=== PATIENT | male | born 1975 | race Caucasian/White ===

== ENCOUNTER 2018-04-22 16:25 | Emergency (ER) | payer SELFPAY ==
[~2018-04-22] VITALS: Ht 175.3 cm; Wt 72.7 kg
[2018-04-22 16:27] VITALS: Ht 175.3 cm; Wt 72.7 kg
[2018-04-22] MEDS ORDERED: NAPROSYN500 MG PO (17:55)
[2018-04-22 18:45] VITALS: BP 135/82
== END 2018-04-22 18:45 | disposition home or self-care (01) ==
LOC: D.ER 16:25
DX: S53.402A Unspecified sprain of left elbow, initial encounter (principal); X58.XXXA Exposure to other specified factors, initial encounter; Y93.89 Activity, other specified; Y92.019 Unspecified place in single-family (private) house as the place of occurrence of the external cause

== ENCOUNTER 2019-01-22 15:15 | Emergency (ER) | payer BC ==
[~2019-01-22] VITALS: Ht 175.3 cm; Wt 72.6 kg
[~2019-01-22 15:15] MED LIST: NAPROSYN500 MG PO
[2019-01-22 15:22] VITALS: Ht 175.3 cm; Wt 72.6 kg
[2019-01-22] MEDS ORDERED: VIBRAMYCIN 100100 MG PO (17:13)
[2019-01-22 17:22] VITALS: BP 123/87
== END 2019-01-22 17:23 | disposition home or self-care (01) ==
LOC: D.ER 15:15
DX: S61.112A Laceration without foreign body of left thumb with damage to nail, initial encounter (principal); X58.XXXA Exposure to other specified factors, initial encounter